=== PATIENT | male | born 1960 | race Caucasian/White ===

== ENCOUNTER 2017-08-07 20:09 | Emergency (ER) | payer MEDICAID, OTHER ==
[~2017-08-07] VITALS: Ht 177.8 cm; Wt 80.7 kg
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
--- NOTE | 2017-08-07 20:10 | NUR ---
ER MD GOOD, ER STORE RECEIVING CLERK SD, RN ELSA, RN SCOTTY, RN HARRY, ACADEMIC REGISTRARHAYLEE VILLALOBOS AT BEDSIDE FOR ASSISTANCE
--- NOTE | 2017-08-07 20:11 | NUR ---
RAC IV 18G PLACED BY GERIATRIC PHYSICIAN ELSA. LAC 18G PLACED BY ER [employer] TRIMMER CASANDRA. FLUSHED AND CLEAN.
--- NOTE | 2017-08-07 20:12 | NUR ---
ULTRASOUND AT BEDSIDE BY ER MD GOOD. NO PERICARDIAL FLUID OR BLOOD IN ABDOMEN SEEN AT THIS TIME. WILL CONTINUE TO MONITOR FOR ANY CHANGES IN MENTAL STATUS OR VITAL SIGNS
--- NOTE | 2017-08-07 20:13 | NUR ---
FAST NEGATIVE PER ER MD GOOD EVALUATION. WILL CONTINUE TO MONITOR FOR ANY CHANGES AND VITAL SIGNS
--- NOTE | 2017-08-07 20:14 | NUR ---
STAT CHEST XRAY AT BEDSIDE. ER MD GOOD AT BEDSIDE TO EVALUATE RESULT WITH XRAY PORT CAPTAIN
[2017-08-07] MEDS ORDERED: CEFAZOLIN 1 GM ONE (20:21)
[2017-08-07 20:22] LABS: BASOPHILS # (AUTO) 0.1 /CMM (0.0-0.2); EOSINOPHILS % (AUTO) 0.9 % (0.0-6.0); HEMATOCRIT 46 % (39-51); HEMOGLOBIN 15.9 g/dL (13.5-17.5); LYMPHOCYTES # (AUTO) 2.9 /CMM (0.8-4.8); LYMPHOCYTES % (AUTO) 28.1 % (20.0-44.0); MEAN CORPUSCULAR HGB CONC 35 g/dl (31.0-36.0); MEAN CORPUSCULAR VOLUME 94 fL (80-96); MONOCYTES # (AUTO) 0.9 /CMM (0.1-1.30); MONOCYTES % (AUTO) 8.7 % (2.0-12.0); NEUTROPHILS # (AUTO) 6.4 /CMM (1.8-8.9); NEUTROPHILS % (AUTO) 61.3 % (43.0-81.0); PLATELET COUNT (AUTO) 243 /CMM (150-450); RDW COEFFICIENT OF VARIATION 12.3 (11.5-15.0); RED BLOOD CELL COUNT(AUTO) 4.88 MIL/uL (4.5-6.0); WHITE BLOOD COUNT (AUTO) 10.4 K/uL (4.3-11.0)
[2017-08-07] MEDS ORDERED: TDAP [DIPH/PERTUSSIS/TET] 0.5 ML VIAL IM ONE ×2 (20:22→20:30)
--- NOTE | 2017-08-07 20:27 | NUR ---
IM LEFT DELTOID TDAP ADMINISTERED BY TERMINAL CLERKLEIGH HUNTER
[2017-08-07 20:30] VITALS: BP 140/78
[2017-08-07] MEDS ORDERED: CEFAZOLIN 1 GM in IV D5W 50 ML IV ONE (20:30)
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
[2017-08-07 20:31] LABS: CALCIUM, SERUM 9.1 mg/dL (8.5-10.1); POTASSIUM 3.5 mmol/L (3.5-5.1)
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
--- NOTE | 2017-08-07 20:32 | NUR ---
DR. BR[facility] KARINE LUCIO SPEAKING TO DR. GOOD REGARDING ADMISSION.
[2017-08-07 20:35] LABS: INR 0.89 (0.85-1.15)
[2017-08-07 20:37] LABS: BILIRUBIN,DIRECT 0.1 mg/dL (0.0-0.2); BILIRUBIN,TOTAL 0.5 mg/dL (0.2-1.0); TOTAL PROTEIN, SERUM 8.5 g/dL (6.4-8.2)
== END 2017-08-07 20:56 | disposition short-term general hospital (02) ==
LOC: ER 20:11
DX: S31.111A Laceration without foreign body of abdominal wall, left upper quadrant without penetration into peritoneal cavity, initial encounter (principal); S21.112A Laceration without foreign body of left front wall of thorax without penetration into thoracic cavity, initial encounter; I10 Essential (primary) hypertension; Z87.01 Personal history of pneumonia (recurrent); X99.8XXA Assault by other sharp object, initial encounter; Y93.89 Activity, other specified; Y92.89 Other specified places as the place of occurrence of the external cause; Y99.8 Other external cause status
CPT/HCPCS: 36415; 71045-TC; 80048-TC; 80076-TC; 85025-TC; 85730-TC; 86850-TC; 90715; A4606; A6253; G0480; J0690; J7060; Z7610

== ENCOUNTER 2017-08-24 21:38 | Emergency (ER) | payer OTHER ==
[~2017-08-24] VITALS: Ht 172.7 cm; Wt 70.3 kg
--- NOTE | 2017-08-24 21:50 | NUR ---
PT BBSELF FROM HOME C/C OF PRESSURE LIKE CP AT 1400 ON THE LEFT SIDE 2/10 RADIATING TO THE LEFT BACK SIDE. -SOB. -N/V/D. SKIN WNL. PT STATES HE BECAME MILDLY SHORT OF BREATH AND DIZZY AT 1400, HOWEVER PT DENIES ANY DIZZINESS OR SOB AT THIS TIME. RESP EVEN AND UNLABORED. NO S/S OF ACUTE DISTRESS NOTED. PT PLACED ON SENIOR C WEB DEVELOPER AND POX. PT SAFETY AND COMFORT MEASURES IN PLACE. EMT BEDSIDE FOR EKG.
--- NOTE | 2017-08-24 22:12 | NUR ---
RADIOLOGY BEDSIDE FOR CHEST X-RAY
--- NOTE | 2017-08-24 22:55 | NUR ---
PT'S PHONE NUMBER: [phone] CELL: [phone]
--- NOTE | 2017-08-24 23:16 | NUR ---
Patient discharged to home in stable condition. Written and verbal after care instructions given. Patient verbalizes understanding of instruction.IV removed. Catheter intact and site benign. Pressure and 4x4 applied to site. No bleeding noted. VSS UPON DISCHARGE. PER MD, PT BEING DISCHARGED HOME PT REQUESTED TO GO HOME AND RECEIVE A CALL REGARDING BLOOD WORK RESULTS.
[2017-08-24 23:20] VITALS: BP 158/86
[2017-08-24 23:21] LABS: BASOPHILS % (AUTO) 0.4 % (0.0-2.0); EOSINOPHILS % (AUTO) 1.5 % (0.0-6.0); HEMATOCRIT 31 % (39-51); HEMOGLOBIN 10.5 g/dL (13.5-17.5); LYMPHOCYTES # (AUTO) 0.9 /CMM (0.8-4.8); LYMPHOCYTES % (AUTO) 18.2 % (20.0-44.0); MEAN CORPUSCULAR HGB CONC 34 g/dl (31.0-36.0); MEAN CORPUSCULAR VOLUME 95 fL (80-96); MONOCYTES # (AUTO) 0.4 /CMM (0.1-1.30); MONOCYTES % (AUTO) 6.9 % (2.0-12.0); NEUTROPHILS # (AUTO) 3.7 /CMM (1.8-8.9); PLATELET COUNT (AUTO) 247 /CMM (150-450); RED BLOOD CELL COUNT(AUTO) 3.26 MIL/uL (4.5-6.0); WHITE BLOOD COUNT (AUTO) 5.1 K/uL (4.3-11.0)
[2017-08-24 23:31] LABS: CALCIUM, SERUM 8.3 mg/dL (8.5-10.1); CARBON DIOXIDE 26 mmol/L (21-32); CHLORIDE 102 mmol/L (98-107); CREATININE 0.8 mg/dL (0.6-1.3); GLUCOSE 113 mg/dL (74-106); POTASSIUM 3.2 mmol/L (3.5-5.1); SODIUM SERUM 139 mmol/L (136-145); UREA NITROGEN, BLOOD 10 mg/dL (7-18)
[2017-08-24 23:40] LABS: TROPONIN I < 0.017 ng/mL (0.00-0.056)
== END 2017-08-24 23:22 | disposition home or self-care (01) ==
LOC: ER 21:39
DX: R07.89 Other chest pain (principal); I10 Essential (primary) hypertension
CPT/HCPCS: 36415; 71045; 80048; 84484; 85025; 93005; 99285; A4606; Z7610

== ENCOUNTER 2018-11-21 07:05 | Emergency (ER) | payer OTHER ==
[~2018-11-21] VITALS: Ht 172.7 cm; Wt 71.7 kg
[2018-11-21] MEDS ORDERED: methylPREDNISolone SOD SUCC 125 MG/2ML VIAL IV ONE (07:30)
[2018-11-21] MEDS ORDERED: diphenhydrAMINE HCL 50 MG/ML VIAL IV ONE (07:30)
[2018-11-21] MEDS ORDERED: EPINEPHRINE (1:1000) MDV 30 MG/30ML VIAL SUBCUT ONE (07:30)
[2018-11-21] MEDS ORDERED: EPINEPHRINE (1:1000) 1 MG/ML AMPUL ONE (07:33)
[2018-11-21] MEDS ORDERED: methylPREDNISolone SOD SUCC 125 MG/2ML VIAL ONE (07:33)
[2018-11-21] MEDS ORDERED: diphenhydrAMINE HCL 50 MG/ML VIAL ONE (07:33)
[2018-11-21 10:08] VITALS: BP 145/99
== END 2018-11-21 10:08 | disposition home or self-care (01) ==
LOC: ER 07:11
DX: T78.40XA Allergy, unspecified, initial encounter (principal); I10 Essential (primary) hypertension; X58.XXXA Exposure to other specified factors, initial encounter
CPT/HCPCS: 96372; 96374; 96375; 99283; J0171 ×2; J1200; J2930

== ENCOUNTER 2018-11-22 19:33 | Emergency (ER) | payer OTHER ==
[~2018-11-22] VITALS: Ht 172.7 cm; Wt 71.7 kg
[2018-11-22] MEDS ORDERED: EPINEPHRINE (1:1000) MDV 30 MG/30ML VIAL SUBCUT ONE (20:30)
[2018-11-22] MEDS ORDERED: FAMOTIDINE (20 MG) 20 MG TABLET PO ONE (20:30)
[2018-11-22] MEDS ORDERED: FAMOTIDINE (20 MG) 20 MG TABLET ONE (21:05)
[2018-11-22] MEDS ORDERED: EPINEPHRINE (1:1000) 1 MG/ML AMPUL ONE (21:05)
[2018-11-22 21:19] VITALS: BP 131/78
== END 2018-11-22 21:49 | disposition home or self-care (01) ==
LOC: ER 19:36
DX: L50.0 Allergic urticaria (principal); I10 Essential (primary) hypertension
CPT/HCPCS: 96372; 99283; J0171 ×2